=== PATIENT | male | born 1970 | race Caucasian/White ===

== ENCOUNTER 2021-10-24 12:41 | Outpatient (CLI) | payer OTHER, SELFPAY ==
--- NOTE | ~2021-10-24 | XR_ITS ---
EXAMINATION: XR abdomen/kub 1V EXAM DATE: 10/24/2021 13:15 INDICATION: Right-sided kidney stone. TECHNIQUE: Frontal projection of the upper abdomen, frontal projection lower abdomen/pelvis for inter pretation. There is no prior study for comparison. FINDINGS: Bowel gas overlying the renal contours. Possible small bilateral nephrolithiasis. There is a calcification projecting over the right lower aspect of the sacrum measuring about 3 mm. Mild symm etric bilateral hip osteoarthritis. Nonobstructive bowel gas pattern. Lung bases are clear. IMPRESSION: Possible small bilateral nephrolithiasis. Indeterminate right pelvic calcification. Reviewed, dictated and finalized at location A. TRANSPORT NURSE IMPRESSION: Possible small bilateral nephrolithiasis. Indeterminate right pelv ic calcification.
== END 2021-10-24 12:42 | disposition home or self-care (01) ==
LOC: ANHIMG 12:52
PROVIDERS: Visit Provider Nurse Practitioner Adult Health
DX: N20.0 Calculus of kidney (principal)
CPT/HCPCS: 74018